=== PATIENT | male | born 1985 | race Caucasian/White ===

== ENCOUNTER 2017-11-22 15:19 | Emergency (ER) | payer OTHER, SELFPAY ==
[2017-11-22 15:22] VITALS: BP 133/77; PULSE 79; RESP 20; TEMP 37.1; O2SAT 99; BMI 29.8
--- NOTE | 2017-11-22 15:37 | ED.NECK ---
HPI - Neck Pain/Injury <ALVIN Santiago - Last Filed: 11/22/17 19:38> General Chief Complaint: Neck Pain/Injury Stated Complaint: NECK INJURY Time Seen by Provider: 11/22/17 15:37 History of Present Illness HPI Narrative: 32-year-old male here for complaint of a right-sided neck pain and headache for the last 2 months. He reports that he got hit in the neck area and posterior stock scalp area a couple of times while playing Frisbee 2 months ago. He reports he has had on and off pain since that timeframe. He reports that his primary care provider had him complete physical therapy which states did not help. He denies any loss of consciousness. No vomiting. No loss of bladder or bowel control. Patient is ambulatory into the emergency room. He denies any stressors or relievers of the pain. MD complaint: neck pain Related Data Home Medications Medication Instructions Recorded Confirmed No Known Home Medications 11/22/17 11/22/17 Allergies Allergy/AdvReac Type Severity Reaction Status Date / Time Anesthetics - Amide Type Allergy Verified 11/22/17 15:27 Anesthetics - Hetal Type- Allergy Verified 11/22/17 15:27 Parabens Review of Systems <ALVIN Santiago - Last Filed: 11/22/17 19:38> Constitutional Denies chills, Denies fever(s), Denies lethargy and Denies weakness Eyes Denies change in vision, Denies eye discharge, Denies irritation and Denies loss of vision ENT Ears, Nose, Mouth, and Throat: Denies change in voice, Denies neck pain and Denies sore throat Cardiovascular Denies chest pain, Denies irregular heart rhythm, Denies lightheadedness, Denies palpitations, Denies dyspnea, Denies dyspnea on exertion and Denies orthopnea Respiratory Denies cough, Denies dyspnea, Denies dyspnea on exertion and Denies wheezing Gastrointestinal Gastrointestinal: Denies abdominal pain, Denies change in bowel habits, Denies diarrhea, Denies nausea and Denies vomiting Genitourinary Denies hematuria, Denies flank pain, Denies urinary incontinence and Denies urinary urgency Musculoskeletal Denies neck pain Comments: Neck pain and headache Integumentary/Breasts Denies pruritus, Denies erythema, Denies rash and Denies wounds Neurologic Denies confusion, Denies loss of vision and Denies weakness Psychiatric Denies anxiety, Denies confusion, Denies depression, Denies homicidal ideation and Denies suicidal ideation Endocrine Denies palpitations Allergic/Immunologic Denies wheezing Exam <ALVIN Santiago - Last Filed: 11/22/17 19:38> Initial Vital Signs Initial Vital Signs: Vital Signs Temperature 98.7 F 11/22/17 15:22 Pulse Rate 79 11/22/17 15:22 Respiratory Rate 20 11/22/17 15:22 Blood Pressure 133/77 H 11/22/17 15:22 Pulse Oximetry 99 11/22/17 15:22 Const General: cooperative and well developed Nutritional Appearance: well nourished Orientation: alert, awake, oriented x3 and not confused HENMT Mouth: oral mucosae normal, oropharynx normal and moist mucous membranes Eyes Conjunctivae: conjunctivae normal Sclera: sclerae normal Pupils: PERRL EOM: EOM intact bilaterally Neck Neck: normal visual inspection, trachea midline, No lymphadenopathy, No midline deformity and No JVD Lymphatic: No lymphedema Resp Effort & Inspection: normal respiratory effort, able to speak in complete sentences, no respiratory distress and no use of accessory muscles Auscultation: clear to auscultation bilaterally, no rales, no rhonchi and no wheezes Cardio Rate: regular rate Rhythm: regular rhythm Heart Sounds: no click, no gallops, no murmurs and no rubs Skin General: no rashes or lesions noted, No jaundice and No petechiae <Felicia Herron DO - Last Filed: 11/23/17 08:30> Initial Vital Signs Initial Vital Signs: Vital Signs Temperature 98.7 F 11/22/17 15:22 Pulse Rate 79 11/22/17 15:22 Respiratory Rate 20 11/22/17 15:22 Blood Pressure 133/77 H 11/22/17 15:22 Pulse Oximetry 99 11/22/17 15:22 Course <ALVIN Santiago - Last Filed: 11/22/17 19:38> Orders Ordered: ED Orders 11/22/17 16:28 CT cervical spine wo con Stat 11/22/17 16:32 CT head/brain wo con Stat Vital Signs - 8 hr 11/22/17 15:22 11/22/17 17:29 Temperature 98.7 F Pulse Rate 79 62 Respiratory Rate 20 16 Blood Pressure 133/77 H Blood Pressure [Left Arm] 134/74 H Pulse Oximetry 99 99 <Felicia EmilielidaDO - Last Filed: 11/23/17 08:30> Orders Ordered: ED Orders 11/22/17 16:28 CT cervical spine wo con Stat 11/22/17 16:32 CT head/brain wo con Stat Vital Signs - 8 hr 11/22/17 15:22 11/22/17 17:29 Temperature 98.7 F Pulse Rate 79 62 Respiratory Rate 20 16 Blood Pressure 133/77 H Blood Pressure [Left Arm] 134/74 H Pulse Oximetry 99 99 MDM - Neck Pain/Injury <Milton HicksALVIN mendez - Last Filed: 11/22/17 19:38> Imaging Data CT scan - head: Radiologist's impression: PROCEDURE: CT HEAD/BRAIN WO CON INDICATIONS: Pain to head TECHNIQUE: Noncontrast 4.5 mm thick angled axial sections acquired from the foramen magnum to the vertex, with coronal and sagittal reformats. For radiation dose reduction, the following was used: automated exposure control, adjustment of mA and/or kV according to patient size. COMPARISON: None. FINDINGS: Image quality: Excellent. CSF spaces: Basal cisterns are patent. No extra-axial fluid collections. Ventricles are normal in size and shape. Incidental note is made of an arachnoid cyst within the midline posterior fossa. Brain: No midline shift. No intracranial masses or hemorrhage. Liu-white matter interface is normal. Skull and face: Calvarium and visualized facial bones are intact, without suspicious lesions. Sinuses: Visualized sinuses and mastoids are clear. IMPRESSION: Unremarkable head CT. No acute intracranial hemorrhage. Dictated by: Zeus Benitez M.D. on 11/22/2017 at 15:53 Approved by: Zeus Benitez M.D. on 11/22/2017 at 15:[address]: Radiologist's impression: PROCEDURE: CT CERVICAL SPINE WO CON INDICATIONS: Neck pain for last 2 months TECHNIQUE: Noncontrast 3 mm thick sections acquired from the skull base to the T4 level. Sagittal and coronal reformats were then constructed. For radiation dose reduction, the following was used: automated exposure control, adjustment of mA and/or kV according to patient size. COMPARISON: None. FINDINGS: Image quality: Excellent. 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 No acute fractures or dislocations. Visualized superior ribs are intact. Soft tissues: Prevertebral soft tissues are normal in thickness. No paravertebral hematomas. No apical pneumothoraces. Mucous retention cyst versus polyp noted in the left maxillary sinus. IMPRESSION: 1. Chronic appearing T1 spinous process fracture. 2. No acute fracture. No acute osseous lesion. If symptoms and/or clinical suspicion for pathology persists, evaluation with MRI may be helpful for further assessment. Dictated by: Therese Brannon MD, PhD on 11/22/2017 at 16:50 Approved by: Therese Brannon MD, PhD on 11/22/2017 at 16:59 [facility] Narrative Medical decision making narrative: CT the head was obtained was negative for any acute findings. CT of the cervical spine shows nonacute T1 spinous process fracture. Fracture may have been from incident 2 months ago. Pain into right-sided neck into posterior scalp presents as tension headache. [id number]-[id number] Tylenol or Motrin as needed for any discomfort. Gentle range of motion to the painful areas of the neck. Follow up with primary care provider. If continued symptoms recommend MRI of the neck. For any worsening symptoms return to the emergency room. Discharge Plan Departure Patient Disposition: Home, Self-Care Clinical Impression: Closed fracture of spinous process of thoracic vertebra, Acute tension headache Discharge Date/Time: 11/22/17 17:41 Interventions: ED Discharge Assessment Last Done: 11/22/17 17:40 Instructions: Tension Headache Activity Restrictions/Additional Instructions: CT the head was obtained was negative for any acute findings. CT of the cervical spine shows nonacute T1 spinous process fracture. Fracture may have been from incident 2 months ago. Pain into right-sided neck into posterior scalp presents as tension headache. Ukvt-[id number]-[id number] Tylenol or Motrin as needed for any discomfort. Gentle range of motion to the painful areas of the neck. Follow up with primary care provider. If continued symptoms recommend MRI of the neck. For any worsening symptoms return to the emergency room. Prescriptions: No Action No Known Home Medications RF: 0 Referrals: [facility] [Provider Group] <Felicia Herron, - Last Filed: 11/23/17 08:30> Cosign ED Attending Vanceature Attestation: I was immediately available in the department for consultation. Documentation has been reviewed. I agree with assessment and plan.
--- NOTE | 2017-11-22 16:27 | PC.NURSE ---
Pt states Im allergic to some kind of anesthesia. Doesnt know name. Put both available types in for now and pt will update at a later date
--- NOTE | 2017-11-22 16:28 | DI.CT.S_ITS ---
PROCEDURE: CT CERVICAL SPINE WO CON INDICATIONS: Neck pain for last 2 months TECHNIQUE: Noncontrast 3 mm thick sections acquired from the skull base to the T4 level. Sagittal and coronal reformats were then constructed. For radiation dose reduction, the following was used: automated exposure control, adjustment of mA and/or kV according to patient size. COMPARISON: None. FINDINGS: Image quality: Excellent. 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 No acute fractures or dislocations. Visualized superior ribs are intact. Soft tissues: Prevertebral soft tissues are normal in thickness. No paravertebral hematomas. No apical pneumothoraces. Mucous retention cyst versus polyp noted in the left maxillary sinus. IMPRESSION: 1. Chronic appearing T1 spinous process fracture. 2. No acute fracture. No acute osseous lesion. If symptoms and/or clinical suspicion for pathology persists, evaluation with MRI may be helpful for further assessment. Dictated by: Therese Brannon MD, PhD on 11/22/2017 at 16:50 Approved by: Therese Brannon MD, PhD on 11/22/2017 at 16:59
--- NOTE | 2017-11-22 16:32 | DI.CT.S_ITS ---
PROCEDURE: CT HEAD/BRAIN WO CON INDICATIONS: Pain to head TECHNIQUE: Noncontrast 4.5 mm thick angled axial sections acquired from the foramen magnum to the vertex, with coronal and sagittal reformats. For radiation dose reduction, the following was used: automated exposure control, adjustment of mA and/or kV according to patient size. COMPARISON: None. FINDINGS: Image quality: Excellent. CSF spaces: Basal cisterns are patent. No extra-axial fluid collections. Ventricles are normal in size and shape. Incidental note is made of an arachnoid cyst within the midline posterior fossa. Brain: No midline shift. No intracranial masses or hemorrhage. Liu-white matter interface is normal. Skull and face: Calvarium and visualized facial bones are intact, without suspicious lesions. Sinuses: Visualized sinuses and mastoids are clear. IMPRESSION: Unremarkable head CT. No acute intracranial hemorrhage. Dictated by: Zeus Benitez M.D. on 11/22/2017 at 15:53 Approved by: Zeus Benitez M.D. on 11/22/2017 at 15:54
[2017-11-22 17:29] VITALS: BP 134/74; PULSE 62; RESP 16; O2SAT 99
== END 2017-11-22 17:41 | disposition home or self-care (01) ==
PROVIDERS: Emergency Provider Nurse Practitioner Family
DX: S22.008A Other fracture of unspecified thoracic vertebra, initial encounter for closed fracture (principal); G44.209 Tension-type headache, unspecified, not intractable; W21.9XXA Striking against or struck by unspecified sports equipment, initial encounter
CPT/HCPCS: 70450; 72125; 99282; 99283

== ENCOUNTER → 2017-12-06 06:39 | Outpatient (CLI) | payer OTHER, SELFPAY ==
--- NOTE | 2017-12-06 | DI.MRI.S_ITS ---
PROCEDURE: MR CERVICAL SPINE WO CON INDICATIONS: Cervicalgia TECHNIQUE: Noncontrast sagittal T1 spin echo and T2 fast spin echo, sagittal STIR, foraminal oblique sagittal T2 fast spin echo, and axial gradient echo or T2 fast spin echo through the cervical spine. COMPARISON: None. FINDINGS: Image quality: Excellent. Alignment and Curvature: There is normal bony alignment. Bone Marrow: Marrow demonstrates normal overall signal. Spinal Cord: Visualized spinal cord has normal size and signal. No cerebellar tonsillar herniation. Paraspinous Soft Tissues: No paravertebral masses. Prevertebral soft tissues are normal in thickness. C2-C3: Normal appearance. C3-C4: Normal appearance. C4-C5: Normal appearance. C5-C6: Bilateral uncovertebral arthropathy and posterior intervening disc osteophyte complex, and minimal bilateral facet disease. No definite canal stenosis. No foraminal narrowing. C6-C7: Normal appearance. C7-T1: Normal appearance. IMPRESSION: Minimal disc degeneration at C5-C6. No canal or foraminal stenosis Dictated by: Wesley Galdamez M.D. on 12/06/2017 at 9:33 Approved by: Wesley Galdamez M.D. on 12/06/2017 at 9:37
== END ==
PROVIDERS: PCP Registered Nurse Diabetes Educator; Visit Provider Registered Nurse Diabetes Educator
DX: M54.2 Cervicalgia (principal); M50.30 Other cervical disc degeneration, unspecified cervical region
CPT/HCPCS: 72141

== ENCOUNTER → 2018-01-15 06:33 | Outpatient (CLI) | payer OTHER, SELFPAY ==
--- NOTE | 2018-01-15 | DI.MRI.S_ITS ---
PROCEDURE: MR ANGIO HEAD WO CON INDICATIONS: HEADACHE AND DIZZINESS TECHNIQUE: Noncontrast axial 3-D [id number] MR angiogram, with 3-dimensional maximum intensity projection (MIP) reformats of the internal carotid arteries and posterior circulation then performed. COMPARISON: None. FINDINGS: Image quality: Excellent. Anterior circulation: Intracranial internal carotid arteries demonstrate normal size and intraluminal flow signal. The flow within the paired anterior cerebral arteries is normal and symmetric. The flow within the middle cerebral arteries is normal and symmetric. The anterior communicating artery is seen. No stenoses, occlusions, or aneurysms. Posterior circulation: Visualized portions of the vertebral arteries demonstrate normal caliber, and join to form a normal appearing basilar artery. Near origin of the right posterior cerebral artery. The flow within the posterior cerebral arteries is normal and symmetric. No stenoses, occlusions, or aneurysms. IMPRESSION: Negative cerebral MR angiography. Dictated by: Bere Chase M.D. on 01/15/2018 at 9:49 Approved by: Bere Chase M.D. on 01/15/2018 at 9:51
== END ==
PROVIDERS: PCP Registered Nurse Diabetes Educator; Visit Provider Registered Nurse Diabetes Educator
DX: R51 Headache (principal); R42 Dizziness and giddiness
CPT/HCPCS: 70544

== ENCOUNTER 2018-07-02 17:40 | Emergency (ER) | payer OTHER, SELFPAY ==
[2018-07-02 17:44] VITALS: BP 112/86; PULSE 66; RESP 15; TEMP 37; O2SAT 99
--- NOTE | 2018-07-02 17:46 | DI.RAD.S_ITS ---
PROCEDURE: XR ANKLE RT MIN 3V INDICATIONS: rolled rt ankle, lateral pain/swelling TECHNIQUE: 3 views of the ankle were acquired. COMPARISON: None. FINDINGS: Bones: No fractures or dislocations. Ankle mortise is normally aligned. No suspicious bony lesions. Soft tissues: No tibiotalar joint effusion. Achilles tendon appears normal. There is a prominent degree of lateral soft tissue swelling adjacent to the distal fibula and the lateral border of the talus. IMPRESSION: Prominent lateral soft tissue swelling, some degree of ligamentous injury likely is present as the underlying cause. A cortical fracture is not found. Dictated by: Pillo Garcia M.D. on 07/02/2018 at 18:40 Approved by: Pillo Garcia M.D. on 07/02/2018 at 18:42
--- NOTE | 2018-07-02 18:06 | ED_ITS ---
HPI - Extremity Injury (Lower) <PRASAD Alfred - Last Filed: 07/02/18 20:34> General Chief Complaint: Extremity Injury, Lower Stated Complaint: RT ANKLE INJURY Time Seen by Provider: 07/02/18 17:49 Source: patient and family Mode of arrival: ambulatory Limitations: no limitations History of Present Illness HPI Narrative: The patient is a 33-year-old male former smoker who presents with his and children with a chief complaint of right ankle pain. He states he was playing basketball and rolled his ankle in. He was able ambulate after. He states he has a history of sprains in both spurs on his right foot and ankle. He denies any bleeding. Denies any numbness or tingling. He states his pain is mostly on the outside of his ankle and that it swelled up right away. Related Data Home Medications Medication Instructions Recorded Confirmed No Known Home Medications 11/22/17 07/02/18 Allergies Allergy/AdvReac Type Severity Reaction Status Date / Time Anesthetics - Amide Type Allergy Verified 11/22/17 15:27 Anesthetics - Hetal Type- Allergy Verified 11/22/17 15:27 Parabens Review of Systems <PRASAD Alfred - Last Filed: 07/02/18 20:34> Review of Systems GENERAL: Denies chills, fatigue, malaise, fever, sweats. HEENT: Denies sinus pain, ear pain, sore throat, difficulty swallowing, dizziness. RESPIRATORY: Denies dyspnea, cough, wheezing, hemoptysis, sputum. CARDIOVASCULAR: Denies chest pain, palpitations, orthopnea, edema, GASTROINTESTINAL: Denies nausea, vomiting, abdominal pain, diarrhea, constipation, melena. : Denies dysuria, frequency, incontinence, hematuria, urinary retention. MUSCULOSKELETAL: see HPI SKIN: see HPI NEUROLOGIC: Denies weakness, headache, numbness, change in speech, confusion, seizures, incoordination. PSYCHIATRIC: No concerning psychosocial issues. 12 point review of systems is negative except for those stated above Exam <PRASAD Alfred - Last Filed: 07/02/18 20:34> Narrative Exam Narrative: GENERAL: This is a well-nourished, well-developed patient, No acute distress HEAD: Atraumatic. Normocephalic. No temporal or scalp tenderness. EYES: Pupils equal round and reactive. Extraocular motions intact. No scleral icterus. No injection or drainage. ENT: Nose without bleeding, purulent drainage or septal hematoma. Throat without erythema, tonsillar hypertrophy or exudate. Uvula midline. Airway patent. NECK: Trachea midline. No JVD or lymphadenopathy. Supple, nontender, no meningeal signs. CARDIOVASCULAR: Regular rate and rhythm without murmurs, gallops, or rubs. RESPIRATORY: Clear to auscultation. Breath sounds equal bilaterally. No wheezes , rales, or rhonchi. GASTROINTESTINAL: Abdomen soft, non-tender, nondistended. No hepato-splenomegaly , or palpable masses. No guarding. EXTREMITIES: right ankle pain to palpation lateral malleolus. Patient is able to pronate and supinate ankle slightly with reduced range of motion but is also able to flex and extend right ankle. Significant swelling noted right lateral malleolus. BACK: Nontender without deformity or crepitance. No flank tenderness. NEURO: AOx3. SKIN: no erythema rash or ecchymosis noted right ankle. Swelling noted significant right lateral malleolus. Initial Vital Signs Initial Vital Signs: Vital Signs Temperature 98.6 F 07/02/18 17:44 Pulse Rate 66 07/02/18 17:44 Respiratory Rate 15 07/02/18 17:44 Blood Pressure 112/86 07/02/18 17:44 Pulse Oximetry 99 07/02/18 17:44 <Anibal Belcher DO - Last Filed: 07/04/18 07:19> Initial Vital Signs Initial Vital Signs: Vital Signs Temperature 98.6 F 07/02/18 17:44 Pulse Rate 66 07/02/18 17:44 Respiratory Rate 15 07/02/18 17:44 Blood Pressure 112/86 07/02/18 17:44 Pulse Oximetry 99 07/02/18 17:44 Course <JOSE Alfred - Last Filed: 07/02/18 20:34> Orders Ordered: ED Orders 07/02/18 17:46 XR ankle RT min 3V Stat Vital Signs - 8 hr 07/02/18 17:44 Temperature 98.6 F Pulse Rate 66 Respiratory Rate 15 Blood Pressure 112/86 Pulse Oximetry 99 <DO Brenda Pierre Last Filed: 07/04/18 07:19> Orders Ordered: ED Orders 07/02/18 17:46 XR ankle RT min 3V Stat Vital Signs - 8 hr 07/02/18 17:44 Temperature 98.6 F Pulse Rate 66 Respiratory Rate 15 Blood Pressure 112/86 Pulse Oximetry 99 MDM - Extremity Injury (Lower) <JOSE Alfred - Last Filed: 07/02/18 20:34> Imaging Data ankle xray: Radiologist's impression: [address] [address] XRay Report Signed Patient: Conrado Muñoz#: [id number] : 1985Acct:[id number] Age/Sex: 33 / MDate of Service: 07/02/18 Loc: ED Accession Number: [id number] Procedure: XR ankle RT min 3V Ordering Provider: Chani Kruse PROCEDURE: XR ANKLE RT MIN 3V INDICATIONS: rolled rt ankle, lateral pain/swelling TECHNIQUE: 3 views of the ankle were acquired. COMPARISON: None. FINDINGS: Bones: No fractures or dislocations. Ankle mortise is normally aligned. No suspicious bony lesions. Soft tissues: No tibiotalar joint effusion. Achilles tendon appears normal. There is a prominent degree of lateral soft tissue swelling adjacent to the distal fibula and the lateral border of the talus. IMPRESSION: Prominent lateral soft tissue swelling, some degree of ligamentous injury likely is present as the underlying cause. A cortical fracture is not found. Dictated by: Pillo Garcia M.D. on 07/02/2018 at 18:40 Approved by: Pillo Garcia M.D. on 07/02/2018 at 18:42 [facility] Narrative Medical decision making narrative: Patient is a 33-year-old male who presents with a chief complaint of an acute right ankle injury. He has swelling, reduced range of motion. It is reassuring that he was able to ambulate after the injury. He had a negative x-ray. I discussed at length rest ice compression elevation as well as [id number] pain medications as needed and able. He was given an air cast for support and already had his own set of crutches. I discussed at length follow up with his primary care provider if worsening or no improvement. He had no questions or concerns upon discharge. Discharge Plan Departure Patient Disposition: Home Clinical Impression: Acute ankle pain Discharge Date/Time: 07/02/18 19:41 Interventions: ED Discharge Assessment Last Done: 07/02/18 19:41 Instructions: How to Use Crutches, How To Perform RICE (Rest, Ice, Compress, Elevate), DI for Ankle Pain Activity Restrictions/Additional Instructions: Your x-ray came back with no fracture today. Please follow-up with primary care provider in a few days of worsening or no improvement. Please use over-the -counter pain medications as needed and able as well as rest ice compression elevation. Please bear weight gradually as tolerated but do not do anything that is very painful. I have given you a note for no PT or physical activity for a week. Please remember that a normal x-ray does not rule out ligament or soft tissue injury. Prescriptions: No Action No Known Home Medications RF: 0 Referrals: Aditya Canas CNP [Primary Care Provider] - Stand Alone Forms: Work Release Note <Anibal Belcher DO - Last Filed: 07/04/18 07:19> Cosign ED Attending Anibal Attestation: I was available for consultation during this patient's emergency department encounter
== END 2018-07-02 19:41 | disposition home or self-care (01) ==
PROVIDERS: Emergency Provider Nurse Practitioner Family; PCP Registered Nurse Diabetes Educator
DX: M25.571 Pain in right ankle and joints of right foot (principal); Y93.67 Activity, basketball
CPT/HCPCS: 29540; 73610; 99282; 99283

== ENCOUNTER → 2018-10-03 06:27 | Outpatient (CLI) | payer OTHER, SELFPAY ==
--- NOTE | 2018-10-03 | DI.MRI.S_ITS ---
PROCEDURE: MR ANKLE RT WO CON INDICATIONS: Pain in unspecified ankle and joints TECHNIQUE: Noncontrast sagittal T1 spin echo and T2 fast spin echo with fat saturation, axial proton density fast spin echo and T2 fast spin echo with fat saturation, coronal T1 spin echo and T2 fast spin echo with fat saturation through the ankle/hindfoot. COMPARISON: None. FINDINGS: Image quality: Excellent. Bones and joints: No bone marrow contusions or fractures. No hindfoot coalitions. No osteochondral injuries of the talar dome. Tibiotalar joint effusions. Hindfoot and midfoot degenerative spurring. Medial structures: The posterior tibialis, flexor digitorum longus, and flexor hallucis longus tendons are intact. There is minimal fluid adjacent to the posterior tibialis tendon in keeping with low-grade tenosynovitis. The posterior tibial neurovascular bundle appears normal within the tarsal tunnel, without extrinsic mass effect. Mild signal changes involving the deep layer of the deltoid ligament complex raising possibility of (age indeterminate) low-grade sprain. The spring ligament components (superomedial calcaneonavicular, medioplantar oblique calcaneonavicular, and inferoplantar longitudinal ligaments) are intact. Lateral structures: Anterior talofibular and calcaneofibular ligament is not well-visualized suspected ruptured, although this could be chronic finding given the relative paucity of adjacent soft tissue edema. The posterior talofibular ligament appears intact. More superiorly, the anterior and posterior tibiofibular ligaments appear intact, as is the intermalleolar ligament. The tibiofibular syndesmosis is normal in width at 2 mm or less. The peroneus longus and brevis tendons demonstrate normal location and morphology. There is fluid adjacent to the peroneus longus and brevis tendon . Adjacent bony peroneal tubercle and retrotrochlear prominence are normal in size. The sinus tarsi demonstrates normal fatty signal, without edema, fibrosis, or cyst formation. Visualized sinus tarsi components (cervical ligament, interosseous talocalcaneal ligament, roots of the inferior extensor retinaculum) appear normal. The calcaneonavicular and calcaneocuboid components of the bifurcate ligament appear intact. The dorsal calcaneocuboid ligament appears intact. Anterior structures: The tibialis anterior, extensor hallucis longus, and extensor digitorum longus tendons appear intact. The dorsal talonavicular ligament appears intact. Posterior and plantar structures: Achilles tendon is intact. Medial and lateral bands of the plantar fascia are of normal thickness. No abductor digiti quinti muscle atrophy to suggest Ahuja neuropathy. IMPRESSION: Posterior tibialis and peroneal tenosynovitis. Peroneal longus mild tendinopathy Ruptured anterior talofibular and calcaneofibular ligaments although probably subacute or chronic finding given the relative paucity of adjacent soft tissue edema. Tibiotalar joint effusion. Mild sprain of the deep fibers of the deltoid ligament complex, age unknown. Dictated by: Wesley Galdamez M.D. on 10/03/2018 at 9:45 Approved by: Wesley Galdamez M.D. on 10/03/2018 at 10:32
== END ==
PROVIDERS: PCP Registered Nurse Diabetes Educator; Visit Provider Registered Nurse Diabetes Educator
DX: M25.571 Pain in right ankle and joints of right foot (principal); M65.871 Other synovitis and tenosynovitis, right ankle and foot; S93.411A Sprain of calcaneofibular ligament of right ankle, initial encounter; S93.491A Sprain of other ligament of right ankle, initial encounter; S93.421A Sprain of deltoid ligament of right ankle, initial encounter; M25.471 Effusion, right ankle
CPT/HCPCS: 73721

== ENCOUNTER 2021-02-10 16:33 | Emergency (ER) | payer OTHER, SELFPAY ==
[2021-02-10 16:50] VITALS: BP 141/79; PULSE 63; RESP 15; TEMP 36.3; O2SAT 99; BMI 31.4
--- NOTE | 2021-02-10 18:04 | DI.US.S_ITS ---
PROCEDURE: US PERIPH VENOUS UP EXTREM LT INDICATIONS: edema/ ridgid vein TECHNIQUE: Real-time imaging, as well as color and pulse Doppler interrogation, was performed of the left upper extremity deep veins from the inferior neck to the antecubital fossa. COMPARISON: None. FINDINGS: The internal jugular vein, visualized portions of the subclavian vein, axillary, and brachial veins are free of intraluminal thrombus. Where physically possible, the veins are normally compressible. Color and pulse Doppler demonstrate normal intraluminal flow, with expected phasicity and pulsatility. Additional scanning of the cephalic and basilic veins of the superficial system demonstrate normal compressibility, without thrombus. IMPRESSION: No deep venous thrombosis. Dictated by: Susie Miranda M.D. on 02/10/2021 at 18:55 Approved by: Susie Miranda M.D. on 02/10/2021 at 18:56
--- NOTE | 2021-02-10 18:51 | ED_ITS ---
HPI - Extremity Problem General Chief complaint: Extremity Problem,Nontraumatic Stated complaint: Enlarged Vein, Left Arm Time Seen by Provider: 02/10/21 18:06 Source: patient Mode of arrival: Ambulatory History of Present Illness HPI Narrative: 35-year-old male daily smoker with noncontributory medical history presents with a chief complaint of few months of discomfort and swelling along with a palpable vein in his left elbow and biceps. He denies any specific injury. His discomfort is worse with motion and improves with rest. His discomfort is worse with palpation. He denies chest pain or shortness of breath. He denies any numbness, tingling or weakness. He denies any history of blood clot or cancer. 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 HEENT: Denies sinus pain, ear pain, sore throat, difficulty swallowing, dizziness. RESPIRATORY: Denies dyspnea, cough, wheezing, hemoptysis, sputum. CARDIOVASCULAR: Denies chest pain, palpitations, orthopnea, edema, GASTROINTESTINAL: Denies nausea, vomiting, abdominal pain, diarrhea, constipation, melena. : Denies dysuria, frequency, incontinence, hematuria, urinary retention. MUSCULOSKELETAL: See HPI SKIN: Denies rash, skin lesions, or other NEUROLOGIC: Denies weakness, headache, numbness, change in speech, confusion, seizures, incoordination. PSYCHIATRIC: No concerning psychosocial issues. 12 point review of systems is negative except for those stated above Patient History Social History Smoking Status: Current every day smoker Smoking Status: Current every day smoker alcohol intake frequency: holidays/special occasions only Substance Use Type: does not use Exam Narrative Exam Narrative: GEN: AOx3 and in mild distress EYES: Pupils are equal, round, and reactive to light and accommodation. Extraoccular muscles are intact bilaterally. There is no subconjunctival hemorrhage or exudate. CHEST: Lungs are clear to auscultation bilaterally and free of wheezes, rales, or rhonchi. Heart rate is regular rhythm, there are no murmurs, clicks, rubs, or gallops. There is no chest wall tenderness. ABD: Abdomen is soft and nontender. There is no guarding or rebound. Bowel sounds are normal in all 4 quadrants. There is no mass or organomegaly. EXT: No obvious deformity, closed, isolated and neurovascularly intact, palpable ?vein in left antecubital fossa is compressible, not firm or rope- like. No erythema, warmth or induration. Painless ROM of all extremities with no loss of sensation or strength. No pain with axial loading of neck. Full strength and range of motion of left upper extremity. SKIN: Warm, pink, and dry. No erythema or rash Initial Vital Signs Initial Vital Signs: Vital Signs Temperature 97.4 F L 02/10/21 16:50 Pulse Rate 63 02/10/21 16:50 Respiratory Rate 15 02/10/21 16:50 Blood Pressure 141/79 H 02/10/21 16:50 Pulse Oximetry 99 02/10/21 16:50 Course Orders Ordered: ED Orders 02/10/21 18:04 US periph venous up extrem lt Stat Vital Signs Vital signs: Vital Signs - 8 hr 02/10/21 16:50 Temperature 97.4 F L Pulse Rate 63 Respiratory Rate 15 Blood Pressure 141/79 H Pulse Oximetry 99 MDM - Extremity (Nontraumatic) Imaging Data US - DVT: Radiologist's Impression: Dong Muñoz??35??M??1985 ? Allergy/Adv: Anesthetics - Amide Type - Select A, Anesthetics - Hetal Type- Parabens (More??) Close Peripheral Vascular Ultrasound (Signed) Susie Miranda - 02/10/21 Ankle MRI (Signed) Wesley Galdamez - 10/03/18 Ankle X-Ray (Signed) Pillo Garcia - 07/02/18 Head Magnetic Resonance Angiography (Signed) Bere Chase - 01/15/18 Cervical Spine MRI (Signed) Wesley Galdamez - 12/06/[address] (Signed) Zeus Benitez - 11/22/[address] (Signed) Therese Brannon - 11/22/17 Launch?[address] [address] Ultrasound Report Signed Patient: Dong Muñoz MR#: [id number] : 1985 Acct:[id number] Age/Sex: 35 / M Date of Service: 02/10/21 Loc: ED Accession Number: [id number] ?? Procedure: US periph venous up extrem lt Ordering Provider: Ara Chavis P.A-C PROCEDURE:? US PERIPH VENOUS UP EXTREM LT ? INDICATIONS:? edema/ ridgid vein ? TECHNIQUE:? Real-time imaging, as well as color and pulse Doppler interrogation, was performed of the left upper extremity deep veins from the inferior neck to the antecubital fossa.? ? COMPARISON:? None. ? FINDINGS:? The internal jugular vein, visualized portions of the subclavian vein, axillary, and brachial veins are free of intraluminal thrombus.? Where physically possible, the veins are normally compressible.? Color and pulse Doppler demonstrate normal intraluminal flow, with expected phasicity and pulsatility.? Additional scanning of the cephalic and basilic veins of the superficial system demonstrate normal compressibility, without thrombus.? ? IMPRESSION:? No deep venous thrombosis. ? ? Dictated by: Susie Miranda M.D. on 02/10/2021 at 18:55 ? ? Approved by: Susie Miranda M.D. on 02/10/2021 at 18:56 ? MDM Narrative Medical decision making narrative: Multiple diagnoses including musculoskeletal versus DVT versus superficial thrombophlebitis versus cellulitis versus other. Patient has a very reassuring physical exam and history. Ultrasound is unremarkable and demonstrates no obvious clot. No erythema, warmth or redness to suggest cellulitis or abscess. Patient given return precautions and questions been answered to his apparent satisfaction Discharge Plan Departure Patient Disposition: Home Clinical Impression: Arm pain, left Instructions: DI for Arm Pain Activity Restrictions/Additional Instructions: *You have been diagnosed with [left anterior shoulder and arm pain. Ultrasound is very reassuring and there is no sign of deep vein or superficial vein thrombosis on today's imaging. *What to do: *Please continue to take your regular medications as directed. [ ] New medication prescriptions sent to your pharmacy: [ ] [ ] New medication written as a paper prescription [x ] No new medications given *Please follow up with your primary care provider in 2-3 days, call for an appointment. Let them know you were seen in the Emergency Department and that we ask that you be seen in follow up. We will electronically transmit a record of today's note if your PCP is in our system *If you do not have a primary care provider please contact the [facility] Resource line at [phone]. They will ask some questions about your medical history and help get you set up with a doctor in the community. *Return to Emergency Department if you should have any new, worsening or concerning symptoms, such as [fever greater than 101 F, shaking chills, worsening pain, persistent vomiting or other bothersome symptoms] Prescriptions: No Action No Known Home Medications RF: 0 Referrals: Cassius Patel [Primary Care Provider] -
== END 2021-02-10 19:49 | disposition home or self-care (01) ==
PROVIDERS: Emergency Provider Emergency Medicine
DX: M79.602 Pain in left arm (principal); R60.9 Edema, unspecified
CPT/HCPCS: 93971; 99283

== ENCOUNTER → 2023-01-03 11:42 | Outpatient (CLI) | payer OTHER, SELFPAY ==
--- NOTE | 2023-01-03 11:43 | DI.MRI.S_ITS ---
PROCEDURE: MR CERVICAL SPINE WO CON INDICATIONS: Neck pain TECHNIQUE: Noncontrast sagittal T1 spin echo and T2 fast spin echo, sagittal STIR, foraminal oblique sagittal T2 fast spin echo, and axial gradient echo or T2 fast spin echo through the cervical spine. COMPARISON: [facility], MR, MR CERVICAL SPINE WO CON, 12/06/2017, 7:00. [facility], CT, CT CERVICAL SPINE WO CON, 11/22/2017, 16:31. [facility], CR, XR CERVICAL SPINE 6+ VIEWS, 12/19/2022, 13:11. FINDINGS: Image quality: This examination is limited by involuntary motion artifact. Alignment and Curvature: There is normal bony alignment. Bone Marrow: Marrow demonstrates normal overall signal. Spinal Cord: Visualized spinal cord has normal size and signal. No cerebellar tonsillar herniation. Paraspinous Soft Tissues: No paravertebral masses. Prevertebral soft tissues are normal in thickness. C2-C3: Normal appearance. C3-C4: Normal appearance. C4-C5: The disc height and disk signal are well-preserved. A mild degree of generalized disc osteophyte complex is seen. Mild facet joint hypertrophy is seen. No significant neural foraminal or central canal narrowing can be seen. C5-C6: The disc height and disk signal are well-preserved. Mild to moderate disc osteophyte complex is seen. Mild facet joint hypertrophy is seen. There is mild right-sided and no significant left-sided neural foraminal narrowing. No significant central canal narrowing is seen. There is mild progression compared to 2018. C6-C7: No significant abnormality is seen. C7-T1: Normal appearance. IMPRESSION: Focal mid cervical spine degenerative change can be seen, which is slightly progressed at C5-C6 compared to 2018. Dictated by: Gurvinder Johnson M.D. on 01/03/2023 at 12:33 Approved by: Gurvinder Johnson M.D. on 01/03/2023 at 12:36
== END ==
PROVIDERS: Referring Provider Physical Medicine & Rehabilitation Pain Medicine; Visit Provider Physical Medicine & Rehabilitation Pain Medicine
DX: M54.2 Cervicalgia (principal); M47.812 Spondylosis without myelopathy or radiculopathy, cervical region
CPT/HCPCS: 72141